=== PATIENT | male | born 1990 | race Caucasian/White ===

== ENCOUNTER 2020-06-20 16:41 | Emergency (ER) | payer OTHER ==
[~2020-06-20] VITALS: Ht 170.2 cm; Wt 69.4 kg
--- NOTE | 2020-06-20 16:49 | NUR ---
BIB FROM [facility] TO ER BED 14. PT IS NOT DROWSY BUT RESPONSIVE. BROUGHT IN BECAUSE PT WAS FOUND IN [facility] DIFFICULT TO [facility] PER EMS REPORT. PT ADMITS TO DRINKING AND USING METH THIS MORNING. NOT IN ANY DISTRESS. AWASRIRAM FAIR FOR EVAL.
[2020-06-20] MEDS ORDERED: IV NS 0.9% 1,000 ML BAG IV ONE (17:00)
[2020-06-20] MEDS ORDERED: LORAZEPAM INJ 2 MG/ML VIAL IV ONE (17:00)
[2020-06-20] MEDS ORDERED: LORAZEPAM INJ 2 MG/ML VIAL ONE (17:40)
--- NOTE | 2020-06-20 17:54 | NUR ---
IV LINE ESTABLISHED ON LFA 18G. MEDICATED ORDERED
--- NOTE | 2020-06-20 20:38 | NUR ---
PT IN BED SLEEPING COMFORTABLY. NAD NOTED
[2020-06-20 23:45] VITALS: BP 122/74
--- NOTE | 2020-06-20 23:49 | NUR ---
Patient discharged to home in stable condition. Written and verbal after care instructions given. Patient verbalizes understanding of instruction.IV removed. Catheter intact and site benign. Pressure and 4x4 applied to site. No bleeding noted. Pt ambulatory with a steady gait. Pt signed homeless waiver.
== END 2020-06-20 23:49 | disposition home or self-care (01) ==
LOC: ER 16:48
DX: F10.129 Alcohol abuse with intoxication, unspecified (principal); F19.10 Other psychoactive substance abuse, uncomplicated; R41.82 Altered mental status, unspecified; Z59.0 Homelessness; Z60.2 Problems related to living alone; Y90.9 Presence of alcohol in blood, level not specified
CPT/HCPCS: 96361; 96374; 99285; J2060; J7030